=== PATIENT | female | born 1965 | race Caucasian/White ===

== ENCOUNTER 2016-10-24 23:59 | Inpatient (IN) | payer SELFPAY ==
[~2016-10-24] VITALS: Ht 149.9 cm; Wt 74.4 kg
[~2016-10-24 23:59] MED LIST: AMLO5 PO; METO50TA PO
[2016-10-25] VITALS (8 sets, daily range): BP systolic 83–151; BP diastolic 51–91; PULSE 76–103; RESP 16–20; TEMP 96.9–98.8; O2SAT 96–99
[2016-10-25] MEDS: SODIUM CHLOR 0.9% 1000 ML INJ 1,000 ML IV SCH ×2 (02:36→15:25)
[2016-10-25] MEDS ORDERED: BISACODYL 10 MG SUPP RECTAL PRN (02:45)
[2016-10-25] MEDS ORDERED: ACETAMINOPHEN 325 MG TAB PO PRN (02:45)
[2016-10-25] MEDS ORDERED: NALOXONE HCL 0.4 MG/ML AMP IV PRN (02:45)
[2016-10-25] MEDS ORDERED: HYDROmorphone HCL PF 1 MG/ML VIAL IV PUSH PRN (02:45)
[2016-10-25] MEDS ORDERED: SODIUM CHLORIDE 0.9% FLUSH 10 ML FLUSH IV FLUSH PRN (02:45)
[2016-10-25] MEDS ORDERED: MAGNESIUM HYDROXIDE SUSP 30 ML CUP PO PRN (02:45)
--- NOTE | 2016-10-25 03:10 | HHI.HP ---
[facility] Siddhartha Cordova MD Admission Diagnosis Intractable abdominal pain possible acute cholecystitis Diagnoses: Chief Complaint: Abdominal pain Travel History International Travel<30 Days: No Contact w/Intl Traveler <30 Da: No Traveled to Known Affected Are: No History of Present Illness This 51-year-old female patient with past medical history which includes hypertension. Patient reports that she began to have abdominal pain yesterday. Patient reports abdominal pain which started yesterday while at work. Patient reports the pain is is located primarily in the right upper quadrant with radiation to the back. Patient describes the pain as a dull constant aching sensation 8 out of 10 at its worst, now 2/10. Pain has improved after IV Dilaudid. Patient is not sure what exacerbates the pain, does not seem to be related to activity or certain foods. Patient reports she has not had pain like this in the past. Patient does have associated nausea but no vomiting. Patient denies chest pain, shortness of breath, diarrhea, constipation, black tarry stools, bright red blood per rectum, fevers, chills, recent changes in diet or recent travel. Review of Systems Except as stated in HPI: all other systems reviewed are Neg Past Family Social History Past Medical History Hypertension Past Surgical History Hysterectomy Reported Medications Norvasc (Amlodipine Besylate) 5 Mg Tab 5 Mg PO DAILY Metoprolol Tartrate 50 Mg Tab 50 Mg PO DAILY Allergies: Coded Allergies: No Known Allergies (Unverified , 10/24/16) Active Ordered Medications Current Medications Medications (Trade) Dose Ordered Sig/William Route Start Time Stop Time Status Last Admin (NS 1000 ml Inj) 1,000 ml @ 75 mls/hr [id number] IV 10/25/16 02:36 (NS Flush) 2 ml UNSCH PRN IV FLUSH 10/25/16 02:45 (NS Flush) 2 ml BID IV FLUSH 10/25/16 09:00 (Tylenol) 650 mg Q4H PRN PO 10/25/16 02:45 (Zofran Inj) 4 mg Q6H PRN IVP 10/25/16 02:45 (Narcan Inj) 0.4 mg UNSCH PRN IV 10/25/16 02:45 (Marley-Colace) 1 tab BID PO 10/25/16 09:00 (Milk Of Magnesia Liq) 30 ml Q12H PRN PO 10/25/16 02:45 (Dulcolax Supp) 10 mg DAILY PRN RECTAL 10/25/16 02:45 Hydromorphone HCl 0.5 mg 0.5 mg Q4H PRN IV PUSH 10/25/16 02:45 (Zosyn 3.375 Gm Premix) 50 ml @ 100 mls/hr Q6H IV 10/25/16 05:00 UNV (Norvasc) 5 mg DAILY PO 10/25/16 09:00 UNV (Lopressor) 50 mg DAILY PO 10/25/16 09:00 UNV Family History Mother and father both alive in their 70s both have hypertension and diabetes Mother and sister have both had cholecystectomy secondary to acute cholecystitis Social History Patient denies EtOH use tobacco use or illicit drug use Physical Exam Physical Exam GENERAL: This is a well-nourished, well-developed patient, in no apparent distress at this time. SKIN: No rashes, ecchymoses or lesions. Cool and dry. HEAD: Atraumatic. Normocephalic. No temporal or scalp tenderness. EYES: Extraocular motions intact. No scleral icterus. No injection or drainage. CARDIOVASCULAR: Regular rate and rhythm without murmurs, gallops, or rubs. RESPIRATORY: Clear to auscultation. Breath sounds equal bilaterally. No wheezes , rales, or rhonchi. GASTROINTESTINAL: Abdomen soft, tender right upper quadrant, nondistended. MUSCULOSKELETAL: Trace bilateral lower extremity edema No calf tenderness. Negative Homans sign bilaterally. NEUROLOGICAL: Awake and alert. No focal deficits appreciated. Motor and sensory grossly within normal limits. Five out of 5 muscle strength in all muscle groups. Normal speech. Assessment and Plan Problem List: (1) Intractable abdominal pain ICD Code: R10.9 Status: Acute (2) HTN (hypertension) ICD Code: I10 Status: Acute Assessment and Plan This 51-year-old female patient with past medical history which includes hypertension and surgical history includes hysterectomy. Patient reports right- sided abdominal pain which radiates to the back starting yesterday Intractable abdominal pain requiring IV Dilaudid for pain control Possible acute cholecystitis positive Mo sign per ER physician bedside ultrasound Ultrasound gallbladder ordered and pending Patient nothing by mouth at this time Dilaudid IV as needed for pain Zosyn IV Hypertension Control pain Continue home amlodipine and metoprolol Monitor blood pressure trend SCDs for DVT prophylaxis Discussed with nursing patient and Janessa Lee Oct 25, 2016 03:10
[2016-10-25] MEDS: ONDANSETRON HCL 4 MG/2 ML VIAL IVP PRN (03:14)
[2016-10-25] MEDS: PIPERACIL-TAZO 3.375 GM PREMIX 50 ML IV SCH ×4 (04:23→22:02)
[2016-10-25] MEDS: HYDROmorphone HCL PF 1 MG/ML VIAL IV PUSH PRN ×6 (05:30→22:08)
--- NOTE | 2016-10-25 08:36 | RADRPT ---
EXAM DATE/TIME: 10/25/2016 07:56 [facility] COMPARISON: No previous studies available for comparison. INDICATIONS : Right upper quadrant abdominal pain. MEDICAL HISTORY : Right upper quadrant pain. Nausea. SURGICAL HISTORY : None. ENCOUNTER: Initial ACUITY: 1 day PAIN SCORE: 6/10 LOCATION: Right upper quadrant MEASUREMENTS: LIVER: 16.5 cm length COMMON DUCT: 9 mm RIGHT KIDNEY: 10.8 x 4.9 x 4.8 cm FINDINGS: LIVER: There is increased echogenicity throughout the liver parenchyma. No dilated biliary ducts. The portal system is patent. COMMON DUCT: No intraluminal mass or stone visualized. GALLBLADDER: Multiple stones are seen throughout the gallbladder. There is diffuse thickening of the gallbladder w all at 1.1 cm. There is fluid around the gallbladder. Patient has a positive Mo's sign. These fin dings are suspicious for acute cholecystitis. PANCREAS: The visualized portions are within normal limits. RIGHT KIDNEY: No evidence of hydronephrosis, stone, or mass. CONCLUSION: 1. Multiple gallstones in the gallbladder without biliary tract obstruction. 2. There is diffuse thickening of the gallbladder wall with fluid around the gallbladder and a positi ve Mo's sign suspicious for acute cholecystitis. Fabrice Dickerson MD on October 25, 2016 at 8:32 Board Certified Radiologist. This report was verified electronically.
[2016-10-25] MEDS: DOCUSATE SODIUM 50 MG/SENNA 8.6 MG TAB PO SCH ×2 (08:49→22:02)
[2016-10-25] MEDS: amLODIPine BESYLATE 5 MG TAB PO SCH (08:49)
[2016-10-25] MEDS: METOPROLOL TARTRATE 50 MG TAB PO SCH (08:49)
[2016-10-25] MEDS: SODIUM CHLORIDE 0.9% FLUSH 10 ML FLUSH IV FLUSH SCH ×2 (08:50→22:03)
[2016-10-25] MEDS ORDERED: HYDROmorphone HCL PF 1 MG/ML VIAL IV PUSH ONE (09:00)
--- NOTE | 2016-10-25 09:26 | HHI.PR ---
Subjective Remarks Follow up for acute cholecystitis. The patient reports continued pain located at the RUQ/epigastric area with radiation to the right flank, described as constant 8/10 pains. She reports intermittent nausea but no vomiting. Denies fevers/chills. She believes she's been having these pains for over a month now. She wants to proceed with cholecystectomy noe. She has no other medical complaints at this time. Objective Vitals Vital Signs Date Time Temp Pulse Resp B/P Pulse Ox O2 Delivery O2 Flow Rate FiO2 10/25/16 08:41 97.8 100 18 151/91 96 10/25/16 06:12 97 10/25/16 06:00 18 10/25/16 03:43 18 10/25/16 03:18 98.8 99 18 133/74 96 I/O 10/24/16 10/24/16 10/24/16 10/25/16 10/25/16 10/25/16 07:00 15:00 23:00 07:00 15:00 23:00 Intake Total 163 ml Balance 163 ml Intake IV Total 163 ml Imaging Last Impressions Gall Bladder Ultrasound 10/25/16 0710 Signed Impressions: Service Date/Time: Tuesday, October 25, 2016 07:56 - CONCLUSION: 1. Multiple gallstones in the gallbladder without biliary tract obstruction. 2. There is diffuse thickening of the gallbladder wall with fluid around the gallbladder and a positive Mo's sign suspicious for acute cholecystitis. Fabrice Dickerson MD Objective Remarks GENERAL: Well-nourished, well-developed pleasant middle aged female patient in [facility]. SKIN: Warm and dry. No rash. HEENT: Normocephalic. Atraumatic.Pupils equal and round. Mucous membranes pink and moist. NECK: Supple. Trachea midline. CARDIOVASCULAR: Regular rate and rhythm. S1, S2 noted. No murmur appreciated. RESPIRATORY: No accessory muscle use. Clear to auscultation. Breath sounds equal bilaterally. GASTROINTESTINAL: Abdomen soft, nondistended, tenderness to light and deep palpation at epigastric and RUQ, with +Mo's sign. Normoactive bowel sounds x4. MUSCULOSKELETAL: No obvious deformities. Extremities without clubbing, cyanosis , or edema. NEUROLOGICAL: Awake and alert. No obvious cranial nerve deficits. Motor grossly within normal limits. Normal speech. PSYCHIATRIC: Appropriate mood and affect; insight and judgment normal. Medications and IVs Current Medications Medications (Trade) Dose Ordered Sig/William Route Start Time Stop Time Status Last Admin (NS 1000 ml Inj) 1,000 ml @ 75 mls/hr [id number] IV 10/25/16 02:36 10/25/16 02:36 (NS Flush) 2 ml UNSCH PRN IV FLUSH 10/25/16 02:45 (NS Flush) 2 ml BID IV FLUSH 10/25/16 09:00 10/25/16 08:50 (Tylenol) 650 mg Q4H PRN PO 10/25/16 02:45 (Zofran Inj) 4 mg Q6H PRN IVP 10/25/16 02:45 10/25/16 03:14 (Narcan Inj) 0.4 mg UNSCH PRN IV 10/25/16 02:45 (Marley-Colace) 1 tab BID PO 10/25/16 09:00 10/25/16 08:49 (Milk Of Magnesia Liq) 30 ml Q12H PRN PO 10/25/16 02:45 Bisacodyl 10 mg 10 mg DAILY PRN RECTAL 10/25/16 02:45 (Zosyn 3.375 Gm Premix) 50 ml @ 100 mls/hr Q6H IV 10/25/16 05:00 10/25/16 04:23 (Norvasc) 5 mg DAILY PO 10/25/16 09:00 10/25/16 08:49 (Lopressor) 50 mg DAILY PO 10/25/16 09:00 10/25/16 08:49 (Dilaudid Pf Inj) 0.5 mg Q3HR PRN IV PUSH 10/25/16 05:32 10/25/16 08:47 (Pneumovax-23 Inj) 25 mcg ONCE ONCE IM 10/26/16 09:00 10/26/16 09:01 A/P Problem List: (1) Intractable abdominal pain ICD Code: R10.9 Status: Acute (2) HTN (hypertension) ICD Code: I10 Status: Acute Assessment and Plan 51-year-old female patient with past medical history which includes hypertension and surgical history includes hysterectomy. Patient reports RUQ abdominal pain which radiates to the back starting yesterday Acute Cholecystitis: with Intractable Abdominal Pain. Positive Mo sign on exam. Gallbladder U/S showed multiple gallstones in the GB without biliary tract obstruction; with diffuse thickening of GB wall with fluid around the GB and +Mo's sign suspicious for acute cholecystitis. Keep NPO. Continue on IV Zosyn. Pain control with IV Dilaudid. Antiemetics prn. IVF. Consult general surgery. Patient wishes to proceed with cholecystectomy. Check screening EKG preoperatively. Hypertension: chronic. Control pain. Continue patient's amlodipine and metoprolol. Monitor blood pressure trend and adjust antihypertensives as needed. SCDs for DVT prophylaxis. Avoid chemical prophylaxis with possible upcoming procedure. Chloé Leigh PA-C Oct 25, 2016 9:26 am
[2016-10-25] MEDS ORDERED: ACETAMIN 325 MG/BUTALBITAL 50 MG/CAFFEINE 40 MG TAB PO ONE (12:00)
--- NOTE | 2016-10-25 13:35 | PD.CAR.PN ---
CVT Progress Note Subjective/Hospital Course: 51-year-old female admitted through emergency room with right upper quadrant pain and nausea and vomiting Patient is worked up and ultrasound reveals acute calculus cholecystitis with pericholecystic fluid consistent with the above Physical exam Abdomen soft active bowel sounds very tender in right upper quadrant and gallbladder is palpable by dome Will allow gallbladder to cool down a bit for next 24 hours and then take patient to the operating room Patient is currently on IV fluids and antibiotics and all things equal patient will be scheduled Thursday for laparoscopic cholecystectomy Thanks J Objective: Vital Signs Date Time Temp Pulse Resp B/P Pulse Ox O2 Delivery O2 Flow Rate FiO2 10/25/16 12:23 98.2 103 18 133/80 96 10/25/16 08:41 97.8 100 18 151/91 96 10/25/16 06:12 97 10/25/16 06:00 18 10/25/16 03:43 18 10/25/16 03:18 98.8 99 18 133/74 96 Grover Batista MD Oct 25, 2016 13:35
[2016-10-25] MEDS: ACETAMIN 325 MG/BUTALBITAL 50 MG/CAFFEINE 40 MG TAB PO PRN (18:43)
[2016-10-26] VITALS (8 sets, daily range): BP systolic 95–177; BP diastolic 52–100; PULSE 79–99; RESP 16–20; TEMP 96.8–99.7; O2SAT 93–98
[2016-10-26] MEDS: ACETAMIN 325 MG/BUTALBITAL 50 MG/CAFFEINE 40 MG TAB PO PRN ×3 (01:33→17:37)
[2016-10-26] MEDS: HYDROmorphone HCL PF 1 MG/ML VIAL IV PUSH PRN ×7 (01:33→21:13)
--- NOTE | 2016-10-26 05:11 | PD.CAR.PN ---
CVT Progress Note Subjective/Hospital Course: 51-year-old female admitted through emergency room with right upper quadrant pain and nausea and vomiting Patient is worked up and ultrasound reveals acute calculus cholecystitis with pericholecystic fluid consistent with the above Physical exam Abdomen soft active bowel sounds very tender in right upper quadrant and gallbladder is palpable by dome Will allow gallbladder to cool down a bit for next 24 hours and then take patient to the operating room Patient is currently on IV fluids and antibiotics and all things equal patient will be scheduled Thursday morning for laparoscopic cholecystectomy Thanks Jey 10/26/16 Abdomen soft mill tender second operator in the right upper quadrant Resolving acute cholecystitis with cholelithiasis For surgery tomorrow Objective: Vital Signs Date Time Temp Pulse Resp B/P Pulse Ox O2 Delivery O2 Flow Rate FiO2 10/26/16 04:00 97.2 85 18 106/55 95 10/26/16 03:31 16 10/26/16 03:31 16 10/26/16 00:00 97.3 79 16 121/59 96 10/25/16 20:43 98 21 10/25/16 20:00 96.9 76 16 83/51 99 10/25/16 16:56 97.7 87 20 111/69 97 10/25/16 14:28 96.9 88 20 116/80 96 10/25/16 12:23 98.2 103 18 133/80 96 10/25/16 08:41 97.8 100 18 151/91 96 10/25/16 06:12 97 10/25/16 06:00 18 Grover Batista MD Oct 26, 2016 05:11
[2016-10-26] MEDS: SODIUM CHLOR 0.9% 1000 ML INJ 1,000 ML IV SCH ×2 (05:16→16:08)
[2016-10-26] MEDS: PIPERACIL-TAZO 3.375 GM PREMIX 50 ML IV SCH ×4 (05:34→21:12)
[2016-10-26 06:40] LABS: AUTOMATED NEUTROPHIL # 7.9 TH/MM3 (1.8-7.7); BASOPHIL # 0.1 TH/MM3 (0-0.2); BASOPHIL % 0.5 % (0.0-2.0); EOSINOPHIL # 0.1 TH/MM3 (0-0.4); EOSINOPHIL % 1.2 % (0.0-4.0); HEMATOCRIT 39.9 % (35.0-46.0); HEMO FLAGS DIFF FINAL; LYMPH % 17.4 % (9.0-44.0); MEAN CELL VOLUME 89.4 FL (80.0-100.0); MEAN CORPUSCULAR HEMOGLOBIN 29.6 PG (27.0-34.0); MEAN CORPUSCULAR HGB CONC 33.1 % (32.0-36.0); MONO % 10.8 % (0.0-8.0); NEUT % 70.1 % (16.0-70.0); PLATELET COUNT 256 TH/MM3 (150-450); RED BLOOD COUNT 4.47 MIL/MM3 (4.00-5.30); RED CELL DISTRIBUTION WIDTH 13.8 % (11.6-17.2); WHITE BLOOD COUNT 11.3 TH/MM3 (4.0-11.0)
[2016-10-26 06:59] LABS: ALT (GPT) 43 U/L (10-53); ANION GAP 7 MEQ/L (5-15); AST (GOT) 25 U/L (15-37); BICARBONATE 26.8 MEQ/L (21.0-32.0); BLOOD UREA NITROGEN 9 MG/DL (7-18); CHLORIDE 105 MEQ/L (98-107); GLOMERULAR FILTRATION RATE 83 ML/MIN (>89); POTASSIUM 3.9 MEQ/L (3.5-5.1); SODIUM (NA) 139 MEQ/L (136-145)
[2016-10-26 07:01] LABS: ALKALINE PHOSPHATASE 114 U/L (45-117); TOTAL BILIRUBIN ADULT 0.9 MG/DL (0.2-1.0)
[2016-10-26] MEDS: METOPROLOL TARTRATE 50 MG TAB PO SCH (08:21)
[2016-10-26] MEDS: amLODIPine BESYLATE 5 MG TAB PO SCH (08:21)
[2016-10-26] MEDS: SODIUM CHLORIDE 0.9% FLUSH 10 ML FLUSH IV FLUSH SCH ×2 (09:00→21:12)
[2016-10-26] MEDS ORDERED: PNEUMOCOCCAL POLYVALENT INJ 25 MCG/0.5 ML SYR IM ONE (09:00)
[2016-10-26] MEDS: DOCUSATE SODIUM 50 MG/SENNA 8.6 MG TAB PO SCH ×2 (09:00→21:12)
--- NOTE | 2016-10-26 13:55 | HHI.PR ---
Subjective Remarks The patient was resting comfortably in bed. She said the level of Dilaudid was not high enough. She said she did not want to try any pills because she gets very bad headaches with those. She otherwise is tolerating a clear liquid diet and is requesting something more filling. Discussed with nursing. Objective Vitals Vital Signs Date Time Temp Pulse Resp B/P Pulse Ox O2 Delivery O2 Flow Rate FiO2 10/26/16 12:08 97.7 87 20 121/52 98 10/26/16 09:30 98 21 10/26/16 08:59 97.6 81 20 95/54 94 10/26/16 06:42 16 10/26/16 04:00 97.2 85 18 106/55 95 10/26/16 03:31 16 10/26/16 00:00 97.3 79 16 121/59 96 10/25/16 20:43 98 21 10/25/16 20:00 96.9 76 16 83/51 99 10/25/16 16:56 97.7 87 20 111/69 97 10/25/16 14:28 96.9 88 20 116/80 96 I/O 10/25/16 10/25/16 10/25/16 10/26/16 10/26/16 10/26/16 07:00 15:00 23:00 07:00 15:00 23:00 Intake Total 163 ml 300 ml Balance 163 ml 300 ml Intake IV Total 163 ml 300 ml # Voids 1 2 Result Diagram: 10/26/16 0615 10/26/16 0610 Imaging Last Impressions Gall Bladder Ultrasound 10/25/16 0710 Signed Impressions: Service Date/Time: Tuesday, October 25, 2016 07:56 - CONCLUSION: 1. Multiple gallstones in the gallbladder without biliary tract obstruction. 2. There is diffuse thickening of the gallbladder wall with fluid around the gallbladder and a positive Mo's sign suspicious for acute cholecystitis. Fabrice Dickerson MD Objective Remarks GENERAL: Well-nourished, well-developed patient in [place]. SKIN: Warm and dry. No rash. HEENT: Normocephalic. Atraumatic.Pupils equal and round. Mucous membranes pink and moist. NECK: Supple. Trachea midline. CARDIOVASCULAR: Regular rate and rhythm. S1, S2 noted. No murmur appreciated. RESPIRATORY: No accessory muscle use. Clear to auscultation. Breath sounds equal bilaterally. GASTROINTESTINAL: Abdomen soft, nondistended, tenderness to light and deep palpation at epigastric and RUQ, with +Mo's sign. Normoactive bowel sounds x4. MUSCULOSKELETAL: No obvious deformities. Extremities without clubbing, cyanosis , or edema. NEUROLOGICAL: Awake and alert. No obvious cranial nerve deficits. Motor grossly within normal limits. Normal speech. PSYCHIATRIC: Appropriate mood and affect; insight and judgment normal. Medications and IVs Current Medications Medications (Trade) Dose Ordered Sig/William Route Start Time Stop Time Status Last Admin (NS 1000 ml Inj) 1,000 ml @ 75 mls/hr [id number] IV 10/25/16 02:36 10/25/16 02:36 (NS Flush) 2 ml UNSCH PRN IV FLUSH 10/25/16 02:45 (NS Flush) 2 ml BID IV FLUSH 10/25/16 09:00 10/25/16 22:03 (Tylenol) 650 mg Q4H PRN PO 10/25/16 02:45 (Zofran Inj) 4 mg Q6H PRN IVP 10/25/16 02:45 10/25/16 03:14 (Narcan Inj) 0.4 mg UNSCH PRN IV 10/25/16 02:45 (Marley-Colace) 1 tab BID PO 10/25/16 09:00 10/25/16 22:02 (Milk Of Magnesia Liq) 30 ml Q12H PRN PO 10/25/16 02:45 Bisacodyl 10 mg 10 mg DAILY PRN RECTAL 10/25/16 02:45 (Zosyn 3.375 Gm Premix) 50 ml @ 100 mls/hr Q6H IV 10/25/16 05:00 10/26/16 11:37 (Norvasc) 5 mg DAILY PO 10/25/16 09:00 10/25/16 08:49 (Lopressor) 50 mg DAILY PO 10/25/16 09:00 10/25/16 08:49 (Dilaudid Pf Inj) 1 mg Q3HR PRN IV PUSH 10/25/16 09:30 10/26/16 11:37 (Fioricet 325-50-40) 1 tab Q6H PRN PO 10/25/16 15:45 10/26/16 11:55 A/P Problem List: (1) Intractable abdominal pain ICD Code: R10.9 Status: Acute (2) HTN (hypertension) ICD Code: I10 Status: Acute Assessment and Plan 51-year-old female patient with a past medical history which includes hypertension and surgical history which includes hysterectomy. Patient reports RUQ abdominal pain which radiates to the back starting yesterday Acute Cholecystitis With intractable abdominal pain. Positive Mo sign on exam. Gallbladder U/S showed multiple gallstones in the GB without biliary tract obstruction; with diffuse thickening of GB wall with fluid around the GB and +Mo's sign suspicious for acute cholecystitis. Surgical consult appreciated. - clear liquids for now. - NPO at [place] for cholecystectomy by surgery. - Continue on IV Zosyn. - Pain control with IV Dilaudid. Antiemetics prn. IVF. Hypertension Chronic. Well controlled. - Control pain. - Continue patient's amlodipine and metoprolol as tolerated. SCDs for DVT prophylaxis. Avoid chemical prophylaxis with possible upcoming procedure Discharge Planning Awaiting clinical improvement Ron Bobby DO Oct 26, 2016 13:55
[2016-10-26] MEDS: ONDANSETRON HCL 4 MG/2 ML VIAL IVP PRN (21:11)
[2016-10-27] VITALS: BP 97/62; PULSE 106; RESP 16; TEMP 99.5; O2SAT 96
[2016-10-27] MEDS: HYDROmorphone HCL PF 1 MG/ML VIAL IV PUSH PRN ×6 (00:55→23:01)
[2016-10-27 04:00] VITALS: BP 91/59; PULSE 93; RESP 16; TEMP 97.6; O2SAT 98
[2016-10-27] MEDS: PIPERACIL-TAZO 3.375 GM PREMIX 50 ML IV SCH ×5 (04:27→23:00)
[2016-10-27] MEDS: SODIUM CHLOR 0.9% 1000 ML INJ 1,000 ML IV SCH ×2 (05:15→19:59)
[2016-10-27 08:00] VITALS: BP 92/58; PULSE 93; RESP 18; TEMP 98.3; O2SAT 99
[2016-10-27] MEDS: DOCUSATE SODIUM 50 MG/SENNA 8.6 MG TAB PO SCH ×2 (08:33→19:58)
[2016-10-27] MEDS: amLODIPine BESYLATE 5 MG TAB PO SCH (09:00)
[2016-10-27] MEDS: METOPROLOL TARTRATE 50 MG TAB PO SCH (09:00)
[2016-10-27] MEDS ORDERED: FAMOTIDINE 20 MG/2 ML VIAL ONE (09:26)
[2016-10-27] MEDS ORDERED: MIDAZOLAM HCL 2 MG/2 ML VIAL ONE (09:26)
[2016-10-27] MEDS ORDERED: DEXAMETHASONE SOD PHOS 4 MG/ML VIAL ONE (09:26)
[2016-10-27] MEDS ORDERED: HYDROmorphone HCL PF 2 MG/ML VIAL ONE (09:57)
[2016-10-27] MEDS ORDERED: fentaNYL CITRATE 250 MCG/5 ML AMP ONE (10:12)
[2016-10-27] MEDS ORDERED: PROPOFOL 200 MG/20 ML AMP IV ONE (12:00)
[2016-10-27] MEDS ORDERED: ONDANSETRON HCL 4 MG/2 ML VIAL IV PUSH ONE (12:00)
[2016-10-27] MEDS ORDERED: LACTATED RINGER'S 1000 ML INJ 1,000 ML IV ONE (12:00)
[2016-10-27] MEDS ORDERED: NEOSTIGMINE 3 MG/3 ML SYR IV ONE (12:00)
[2016-10-27] MEDS ORDERED: DO NOT ADM ANY ANTICOAGULANT DRUGS PRN (12:30)
[2016-10-27] MEDS ORDERED: *ONDANSETRON 4 MG VIAL PERIprocedural Use ONLY ONE (12:43)
[2016-10-27] MEDS ORDERED: *morphine SULFATE 8 MG/ML PERIprocedure ONLY ONE ×2 (12:52→13:09)
[2016-10-27] MEDS ORDERED: MAGNESIUM SULFATE 2 GM/NS 100 ML IV ONE ×2 (13:00)
[2016-10-27] MEDS: ONDANSETRON HCL 4 MG/2 ML VIAL IVP PRN ×2 (14:42→23:07)
[2016-10-27 16:00] VITALS: BP 107/67; PULSE 120; RESP 16; TEMP 97.4; O2SAT 96
[2016-10-27] MEDS ORDERED: MORPHINE SULFATE 4 MG/ML INJ IV PUSH PRN (17:45)
--- NOTE | 2016-10-27 17:55 | HHI.PR ---
Subjective Remarks The patient complained of significant pain following surgery. She says certain movements will make the pain worse or better. Family was at the bedside. The patient wanted to go home tomorrow. Discussed with nursing and surgery. Objective Vitals Vital Signs Date Time Temp Pulse Resp B/P Pulse Ox O2 Delivery O2 Flow Rate FiO2 10/27/16 16:00 97.4 120 16 107/67 96 10/27/16 13:25 98.0 103 20 123/73 95 Nasal Cannula 2 10/27/16 13:15 103 20 123/73 95 Nasal Cannula 2 10/27/16 13:00 97 20 122/67 92 Nasal Cannula 2 10/27/16 12:45 110 20 126/69 97 Nasal Cannula 2 10/27/16 12:30 98.0 108 20 109/62 93 Nasal Cannula 2 10/27/16 08:00 98.3 93 18 92/58 99 10/27/16 05:03 16 10/27/16 04:00 97.6 93 16 91/59 98 10/27/16 01:50 16 10/27/16 00:00 99.5 106 16 97/62 96 10/26/16 20:00 99.6 99 17 97/59 97 I/O 10/26/16 10/26/16 10/26/16 10/27/16 10/27/16 10/27/16 07:00 15:00 23:00 07:00 15:00 23:00 Intake Total 960 ml 720 ml 1045 ml Output Total 65 ml Balance 960 ml 720 ml 980 ml Intake Oral 960 ml 720 ml IV Total 45 ml Other 1000 ml Output Drainage Total 40 ml Estimated Blood Loss 25 ml # Voids 2 1 2 Result Diagram: 10/26/16 0615 10/26/16 0610 Imaging Last Impressions Gall Bladder Ultrasound 10/25/16 0710 Signed Impressions: Service Date/Time: Tuesday, October 25, 2016 07:56 - CONCLUSION: 1. Multiple gallstones in the gallbladder without biliary tract obstruction. 2. There is diffuse thickening of the gallbladder wall with fluid around the gallbladder and a positive Mo's sign suspicious for acute cholecystitis. Fabrice Dickerson MD Objective Remarks GENERAL: Well-nourished, well-developed patient in [place]. SKIN: Warm and dry. No rash. HEENT: Normocephalic. Atraumatic.Pupils equal and round. Mucous membranes pink and moist. NECK: Supple. Trachea midline. CARDIOVASCULAR: Regular rate and rhythm. S1, S2 noted. No murmur appreciated. RESPIRATORY: No accessory muscle use. Clear to auscultation. Breath sounds equal bilaterally. GASTROINTESTINAL: Abdomen soft, nondistended, tenderness to light and deep palpation at epigastric and RUQ. GENIE drain in place. Normoactive bowel sounds x4. MUSCULOSKELETAL: No obvious deformities. Extremities without clubbing, cyanosis , or edema. NEUROLOGICAL: Awake and alert. No obvious cranial nerve deficits. Motor grossly within normal limits. Normal speech. PSYCHIATRIC: Appropriate mood and affect; insight and judgment normal. Procedures Cholecystectomy 10/27/16 Medications and IVs Current Medications Medications (Trade) Dose Ordered Sig/William Route Start Time Stop Time Status Last Admin (NS 1000 ml Inj) 1,000 ml @ 75 mls/hr [id number] IV 10/25/16 02:36 10/25/16 02:36 (NS Flush) 2 ml UNSCH PRN IV FLUSH 10/25/16 02:45 (NS Flush) 2 ml BID IV FLUSH 10/25/16 09:00 10/26/16 21:12 (Tylenol) 650 mg Q4H PRN PO 10/25/16 02:45 (Zofran Inj) 4 mg Q6H PRN IVP 10/25/16 02:45 10/27/16 14:42 (Narcan Inj) 0.4 mg UNSCH PRN IV 10/25/16 02:45 (Marley-Colace) 1 tab BID PO 10/25/16 09:00 10/27/16 08:33 (Milk Of Magnesia Liq) 30 ml Q12H PRN PO 10/25/16 02:45 Bisacodyl 10 mg 10 mg DAILY PRN RECTAL 10/25/16 02:45 (Zosyn 3.375 Gm Premix) 50 ml @ 100 mls/hr Q6H IV 10/25/16 05:00 10/27/16 10:45 (Norvasc) 5 mg DAILY PO 10/25/16 09:00 10/25/16 08:49 (Lopressor) 50 mg DAILY PO 10/25/16 09:00 10/25/16 08:49 (Fioricet 325-50-40) 1 tab Q6H PRN PO 10/25/16 15:45 10/26/16 17:37 Miscellaneous Information ALL NURSING DEPARTME... UNSCH PRN .XX 10/27/16 12:30 10/28/16 12:29 (Morphine Inj) 4 mg Q2H PRN IV PUSH 10/27/16 17:45 UNV (Percocet 5-325 Mg) 1 tab Q4H PRN PO 10/27/16 17:45 UNV A/P Problem List: (1) Intractable abdominal pain ICD Code: R10.9 Status: Acute (2) HTN (hypertension) ICD Code: I10 Status: Acute Assessment and Plan 51-year-old female patient with a past medical history which includes hypertension and surgical history which includes hysterectomy. Patient reports RUQ abdominal pain which radiates to the back starting yesterday Acute Cholecystitis With intractable abdominal pain. Positive Mo sign on exam. Gallbladder U/S showed multiple gallstones in the GB without biliary tract obstruction; with diffuse thickening of GB wall with fluid around the GB and +Mo's sign suspicious for acute cholecystitis. Surgical consult appreciated. Status post close cystectomy 10/27/16. - Advance diet as tolerated. - DC antibiotics. - Pain control with IV morphine and Percocet. Antiemetics prn. IVF. - Follow up with general surgery. - Follow cultures. Hypertension Chronic. Exacerbated by pain. - Control pain. - Continue patient's amlodipine and metoprolol as tolerated. SCDs for DVT prophylaxis. Avoid chemical prophylaxis with possible upcoming procedure Discharge Planning Anticipate discharge home in the morning Ron Bobby DO Oct 27, 2016 17:55
[2016-10-27] MEDS: oxyCODONE/ACETAMINOPHEN 5 MG/325 MG TAB PO PRN (19:59)
[2016-10-27] MEDS: SODIUM CHLORIDE 0.9% FLUSH 10 ML FLUSH IV FLUSH SCH (19:59)
[2016-10-27 20:00] VITALS: BP 143/89; PULSE 119; RESP 18; TEMP 99.5; O2SAT 95
[2016-10-28] VITALS: BP 109/60; PULSE 114; RESP 16; TEMP 98.7; O2SAT 99
[2016-10-28] MEDS: oxyCODONE/ACETAMINOPHEN 5 MG/325 MG TAB PO PRN ×3 (00:07→08:35)
[2016-10-28] MEDS: HYDROmorphone HCL PF 1 MG/ML VIAL IV PUSH PRN ×3 (02:59→10:54)
[2016-10-28] MEDS: PIPERACIL-TAZO 3.375 GM PREMIX 50 ML IV SCH (04:07)
[2016-10-28 07:20] LABS: AUTOMATED NEUTROPHIL # 6.5 TH/MM3 (1.8-7.7); BASOPHIL % 0.1 % (0.0-2.0); EOSINOPHIL # 0.1 TH/MM3 (0-0.4); EOSINOPHIL % 0.7 % (0.0-4.0); HEMATOCRIT 35.5 % (35.0-46.0); HEMO FLAGS DIFF FINAL; LYMPH % 17.9 % (9.0-44.0); LYMPHOCYTE # 1.6 TH/MM3 (1.0-4.8); MEAN CORPUSCULAR HEMOGLOBIN 30.4 PG (27.0-34.0); MEAN CORPUSCULAR HGB CONC 34.2 % (32.0-36.0); MONO % 10.2 % (0.0-8.0); NEUT % 71.1 % (16.0-70.0); PLATELET COUNT 267 TH/MM3 (150-450); RED BLOOD COUNT 3.98 MIL/MM3 (4.00-5.30); RED CELL DISTRIBUTION WIDTH 13.8 % (11.6-17.2); WHITE BLOOD COUNT 9.2 TH/MM3 (4.0-11.0)
--- NOTE | 2016-10-28 07:37 | EKG ---
Date Performed: 10/27/2016 Time Performed: 09:48:34 PTAGE: 51 years EKG: SINUS TACHYCARDIA ABNORMAL RHYTHM ECG NO PREVIOUS TRACING DOCTOR: Rolanod Segura Interpretating Date/Time 10/28/2016 07:36:53
[2016-10-28 07:41] LABS: ANION GAP 7 MEQ/L (5-15); AST (GOT) 35 U/L (15-37); BICARBONATE 27.9 MEQ/L (21.0-32.0); BLOOD UREA NITROGEN 5 MG/DL (7-18); CHLORIDE 105 MEQ/L (98-107); GLOMERULAR FILTRATION RATE 97 ML/MIN (>89); POTASSIUM 3.5 MEQ/L (3.5-5.1); SODIUM (NA) 140 MEQ/L (136-145)
[2016-10-28 07:45] LABS: ALKALINE PHOSPHATASE 116 U/L (45-117); ALT (GPT) 55 U/L (10-53); TOTAL BILIRUBIN ADULT 0.7 MG/DL (0.2-1.0)
[2016-10-28 08:00] VITALS: BP 108/56; PULSE 102; RESP 16; TEMP 97.1; O2SAT 92
[2016-10-28] MEDS: METOPROLOL TARTRATE 50 MG TAB PO SCH ×2 (09:00→10:54)
[2016-10-28] MEDS: amLODIPine BESYLATE 5 MG TAB PO SCH (09:00)
--- NOTE | 2016-10-28 09:38 | HHI.PR ---
Subjective Remarks The patient was still having significant abdominal pain. She wanted increased pain medication. She has not been passing gas. She has not had a bowel movement since she has been here. She was eating breakfast. She wants to go home soon. Discussed with nursing. Objective Vitals Vital Signs Date Time Temp Pulse Resp B/P Pulse Ox O2 Delivery O2 Flow Rate FiO2 10/28/16 08:00 97.1 102 16 108/56 92 10/28/16 00:00 98.7 114 16 109/60 99 10/27/16 20:00 99.5 119 18 143/89 95 10/27/16 16:00 97.4 120 16 107/67 96 10/27/16 13:25 98.0 103 20 123/73 95 Nasal Cannula 2 10/27/16 13:15 103 20 123/73 95 Nasal Cannula 2 10/27/16 13:00 97 20 122/67 92 Nasal Cannula 2 10/27/16 12:45 110 20 126/69 97 Nasal Cannula 2 10/27/16 12:30 98.0 108 20 109/62 93 Nasal Cannula 2 I/O 10/27/16 10/27/16 10/27/16 10/28/16 10/28/16 10/28/16 07:00 15:00 23:00 07:00 15:00 23:00 Intake Total 1045 ml 360 ml 240 ml Output Total 65 ml 40 ml 25 ml Balance 980 ml 320 ml 215 ml Intake Oral 360 ml 240 ml IV Total 45 ml Other 1000 ml Output Drainage Total 40 ml 40 ml 25 ml Estimated Blood Loss 25 ml # Voids 2 3 # Bowel Movements 0 0 Result Diagram: 10/28/16 0536 10/28/16 0536 Imaging Last Impressions Gall Bladder Ultrasound 10/25/16 0710 Signed Impressions: Service Date/Time: Tuesday, October 25, 2016 07:56 - CONCLUSION: 1. Multiple gallstones in the gallbladder without biliary tract obstruction. 2. There is diffuse thickening of the gallbladder wall with fluid around the gallbladder and a positive Mo's sign suspicious for acute cholecystitis. Fabrice Dickerson MD Objective Remarks GENERAL: Well-nourished, well-developed patient in NAD. SKIN: Warm and dry. No rash. HEENT: Normocephalic. Atraumatic.Pupils equal and round. Mucous membranes pink and moist. NECK: Supple. Trachea midline. CARDIOVASCULAR: Regular rate and rhythm. S1, S2 noted. No murmur appreciated. RESPIRATORY: No accessory muscle use. Clear to auscultation. Breath sounds equal bilaterally. GASTROINTESTINAL: Abdomen soft, nondistended, tenderness to light and deep palpation at epigastric and RUQ. GENIE drain in place. Decreased bowel sounds. MUSCULOSKELETAL: No obvious deformities. Extremities without clubbing, cyanosis , or edema. NEUROLOGICAL: Awake and alert. No obvious cranial nerve deficits. Motor grossly within normal limits. Normal speech. PSYCHIATRIC: Slightly flattened affect. Procedures Cholecystectomy 10/27/16 Medications and IVs Current Medications Medications (Trade) Dose Ordered Sig/William Route Start Time Stop Time Status Last Admin (NS 1000 ml Inj) 1,000 ml @ 75 mls/hr [id number] IV 10/25/16 02:36 10/27/16 19:59 (NS Flush) 2 ml UNSCH PRN IV FLUSH 10/25/16 02:45 (NS Flush) 2 ml BID IV FLUSH 10/25/16 09:00 10/26/16 21:12 (Tylenol) 650 mg Q4H PRN PO 10/25/16 02:45 (Zofran Inj) 4 mg Q6H PRN IVP 10/25/16 02:45 10/27/16 23:07 (Narcan Inj) 0.4 mg UNSCH PRN IV 10/25/16 02:45 (Marley-Colace) 1 tab BID PO 10/25/16 09:00 10/27/16 19:58 (Milk Of Magnesia Liq) 30 ml Q12H PRN PO 10/25/16 02:45 Bisacodyl 10 mg 10 mg DAILY PRN RECTAL 10/25/16 02:45 (Zosyn 3.375 Gm Premix) 50 ml @ 100 mls/hr Q6H IV 10/25/16 05:00 10/28/16 04:07 (Norvasc) 5 mg DAILY PO 10/25/16 09:00 10/25/16 08:49 (Lopressor) 50 mg DAILY PO 10/25/16 09:00 10/25/16 08:49 (Fioricet 325-50-40) 1 tab Q6H PRN PO 10/25/16 15:45 10/26/16 17:37 Miscellaneous Information ALL NURSING DEPARTME... UNSCH PRN .XX 10/27/16 12:30 10/28/16 12:29 (Percocet 5-325 Mg) 1 tab Q4H PRN PO 10/27/16 17:45 10/28/16 08:35 (Dilaudid Pf Inj) 1 mg Q4H PRN IV PUSH 10/27/16 18:45 10/28/16 06:36 A/P Problem List: (1) Intractable abdominal pain ICD Code: R10.9 Status: Acute (2) HTN (hypertension) ICD Code: I10 Status: Acute Assessment and Plan 51-year-old female patient with a past medical history which includes hypertension and surgical history which includes hysterectomy. Patient reports RUQ abdominal pain which radiates to the back starting yesterday Acute Cholecystitis With intractable abdominal pain. Positive Mo sign on exam. Gallbladder U/S showed multiple gallstones in the GB without biliary tract obstruction; with diffuse thickening of GB wall with fluid around the GB and +Mo's sign suspicious for acute cholecystitis. Surgical consult appreciated. Status post close cystectomy 10/27/16. - Advance diet as tolerated. - DC antibiotics. - Pain control with IV morphine and oxycodone. Antiemetics prn. IVF. - Follow up with general surgery. Drain still in place. - Follow cultures. Question of ileus The pt has not been passing gas and does not have bowel sounds. - KUB pending. - make pt NPO with supportive care if ileus is suggested. Hypertension Chronic. Exacerbated by pain. Well controlled at this time. - Control pain. - Continue patient's amlodipine and metoprolol as tolerated. SCDs for DVT prophylaxis Discharge Planning Possible d/c later today or tomorrow if feeling better and KUB normal Ron Bobby DO Oct 28, 2016 09:38
[2016-10-28] MEDS ORDERED: OXYC1CAP PO (09:39)
--- NOTE | 2016-10-28 10:25 | RADRPT ---
EXAM DATE/TIME: 10/28/2016 10:03 [facility] COMPARISON: US ABDOMEN - GALLBLADDER, October 25, 2016, 7:56. INDICATIONS : Rule out ileus. MEDICAL HISTORY : None. SURGICAL HISTORY : Cholecystectomy. ENCOUNTER: Subsequent ACUITY: 3 days PAIN SCORE: 10/10 LOCATION: Bilateral Abdomen. FINDINGS: There is a nonobstructive bowel gas pattern identified. Air is seen within transverse colon and, perh aps minimally distended. No dilated loops of small bowel are seen. Surgical clips are noted in the ri ght upper quadrant as well as a surgical drain. There are clips within the pelvis. CONCLUSION: Minimally distended transverse colon without definite evidence for obstruction. A mild ileus can have this appearance. Florencio Gonzalez MD on October 28, 2016 at 10:12 Board Certified Radiologist. This report was verified electronically.
--- NOTE | 2016-10-28 10:30 | PD.CAR.PN ---
CVT Progress Note Subjective/Hospital Course: 51-year-old female admitted through emergency room with right upper quadrant pain and nausea and vomiting Patient is worked up and ultrasound reveals acute calculus cholecystitis with pericholecystic fluid consistent with the above Physical exam Abdomen soft active bowel sounds very tender in right upper quadrant and gallbladder is palpable by dome Will allow gallbladder to cool down a bit for next 24 hours and then take patient to the operating room Patient is currently on IV fluids and antibiotics and all things equal patient will be scheduled Thursday morning for laparoscopic cholecystectomy Thanks Jey 10/26/16 Abdomen soft oil process stillman in the right upper quadrant Resolving acute cholecystitis with cholelithiasis For surgery tomorrow 10/28/16 Status post laparoscopic cholecystectomy Incisions clean and dry Abdomen soft active bowel sounds GI function normal DC patient today Follow-up with me 2 weeks DC GENIE Objective: Vital Signs Date Time Temp Pulse Resp B/P Pulse Ox O2 Delivery O2 Flow Rate FiO2 10/28/16 08:00 97.1 102 16 108/56 92 10/28/16 00:00 98.7 114 16 109/60 99 10/27/16 20:00 99.5 119 18 143/89 95 10/27/16 16:00 97.4 120 16 107/67 96 10/27/16 13:25 98.0 103 20 123/73 95 Nasal Cannula 2 10/27/16 13:15 103 20 123/73 95 Nasal Cannula 2 10/27/16 13:00 97 20 122/67 92 Nasal Cannula 2 10/27/16 12:45 110 20 126/69 97 Nasal Cannula 2 10/27/16 12:30 98.0 108 20 109/62 93 Nasal Cannula 2 Labs: Laboratory Tests Test 10/28/16 05:36 White Blood Count 9.2 TH/MM3 (4.0-11.0) Red Blood Count 3.98 MIL/MM3 (4.00-5.30) Hemoglobin 12.1 GM/DL (11.6-15.3) Hematocrit 35.5 % (35.0-46.0) Mean Corpuscular Volume 89.0 FL (80.0-100.0) Mean Corpuscular Hemoglobin 30.4 PG (27.0-34.0) Mean Corpuscular Hemoglobin 34.2 % Concent (32.0-36.0) Red Cell Distribution Width 13.8 % (11.6-17.2) Platelet Count 267 TH/MM3 (150-450) Mean Platelet Volume 8.9 FL (7.0-11.0) Neutrophils (%) (Auto) 71.1 % (16.0-70.0) Lymphocytes (%) (Auto) 17.9 % (9.0-44.0) Monocytes (%) (Auto) 10.2 % (0.0-8.0) Eosinophils (%) (Auto) 0.7 % (0.0-4.0) Basophils (%) (Auto) 0.1 % (0.0-2.0) Neutrophils # (Auto) 6.5 TH/MM3 (1.8-7.7) Lymphocytes # (Auto) 1.6 TH/MM3 (1.0-4.8) Monocytes # (Auto) 0.9 TH/MM3 (0-0.9) Eosinophils # (Auto) 0.1 TH/MM3 (0-0.4) Basophils # (Auto) 0.0 TH/MM3 (0-0.2) CBC Comment DIFF FINAL Differential Comment Sodium Level 140 MEQ/L (136-145) Potassium Level 3.5 MEQ/L (3.5-5.1) Chloride Level 105 MEQ/L (98-107) Carbon Dioxide Level 27.9 MEQ/L (21.0-32.0) Anion Gap 7 MEQ/L (5-15) Blood Urea Nitrogen 5 MG/DL (7-18) Creatinine 0.64 MG/DL (0.50-1.00) Estimat Glomerular Filtration 97 ML/MIN (>89) Rate Random Glucose 112 MG/DL (74-106) Calcium Level 8.6 MG/DL (8.5-10.1) Total Bilirubin 0.7 MG/DL (0.2-1.0) Aspartate Amino Transf 35 U/L (15-37) (AST/SGOT) Alanine Aminotransferase 55 U/L (10-53) (ALT/SGPT) Alkaline Phosphatase 116 U/L (45-117) Total Protein 6.3 GM/DL (6.4-8.2) Albumin 2.4 GM/DL (3.4-5.0) Result Diagram: 10/28/16 0536 10/28/16 0536 Grover Batista MD Oct 28, 2016 10:30
[2016-10-28] MEDS: SODIUM CHLOR 0.9% 1000 ML INJ 1,000 ML IV SCH (10:36)
[2016-10-28] MEDS: SODIUM CHLORIDE 0.9% FLUSH 10 ML FLUSH IV FLUSH SCH (10:54)
[2016-10-28] MEDS: DOCUSATE SODIUM 50 MG/SENNA 8.6 MG TAB PO SCH (10:54)
[2016-10-28 12:00] VITALS: BP 105/53; PULSE 102; RESP 16; TEMP 97.7; O2SAT 97
[2016-10-28 12:37] VITALS: RESP 18
--- NOTE | 2016-10-28 13:07 | HHI.DCPOC ---
Discharge Care Plan Diagnosis: (1) Intractable abdominal pain (2) Cholecystitis, acute (3) Gall stone Goals to Promote Your Health * To prevent worsening of your condition and complications * To maintain your health at the optimal level Directions to Meet Your Goals Take your medications as prescribed Follow your dietary instruction Follow activity as directed Keep your appointments as scheduled Take your immunizations and boosters as scheduled If your symptoms worsen call your PCP, if no PCP go to Urgent Care Center or Emergency Room Smoking is Dangerous to Your Health. Avoid second hand smoke Call the 24-hour hour crisis hotline for domestic abuse at Ron Bobby DO Oct 28, 2016 13:07
[2016-10-28] MEDS ORDERED: LEVA750T9 PO (13:14)
--- NOTE | 2016-10-28 13:18 | HHI.DS ---
Discharge Summary Admission Date Oct 25, 2016 at 02:23 Discharge Date: Oct 28, 2016 Admitting Diagnosis Intractable abdominal pain possible acute cholecystitis (1) Intractable abdominal pain ICD Code: R10.9 (2) Cholecystitis, acute ICD Code: K81.0 Diagnosis: Principal (3) Gall stone ICD Code: K80.20 Procedures Cholecystectomy 10/27/16 Brief History - From Admission This 51-year-old female patient with past medical history which includes hypertension. Patient reports that she began to have abdominal pain yesterday. Patient reports abdominal pain which started yesterday while at work. Patient reports the pain is is located primarily in the right upper quadrant with radiation to the back. Patient describes the pain as a dull constant aching sensation 8 out of 10 at its worst, now 2/10. Pain has improved after IV Dilaudid. Patient is not sure what exacerbates the pain, does not seem to be related to activity or certain foods. Patient reports she has not had pain like this in the past. Patient does have associated nausea but no vomiting. Patient denies chest pain, shortness of breath, diarrhea, constipation, black tarry stools, bright red blood per rectum, fevers, chills, recent changes in diet or recent travel. CBC/BMP: 10/28/16 0536 10/28/16 0536 Significant Findings Laboratory Tests Test 10/26/16 10/26/16 10/28/16 06:10 06:15 05:36 Estimat Glomerular Filtration 83 ML/MIN (>89) Rate Albumin 2.9 GM/DL 2.4 GM/DL (3.4-5.0) (3.4-5.0) White Blood Count 11.3 TH/MM3 (4.0-11.0) Neutrophils (%) (Auto) 70.1 % 71.1 % (16.0-70.0) (16.0-70.0) Monocytes (%) (Auto) 10.8 % 10.2 % (0.0-8.0) (0.0-8.0) Neutrophils # (Auto) 7.9 TH/MM3 (1.8-7.7) Monocytes # (Auto) 1.2 TH/MM3 (0-0.9) Red Blood Count 3.98 MIL/MM3 (4.00-5.30) Blood Urea Nitrogen 5 MG/DL (7-18) Random Glucose 112 MG/DL (74-106) Alanine Aminotransferase 55 U/L (10-53) (ALT/SGPT) Total Protein 6.3 GM/DL (6.4-8.2) Imaging Last Impressions Abdomen X-Ray 10/28/16 0000 Signed Impressions: Service Date/Time: Friday, October 28, 2016 10:03 - CONCLUSION: Minimally distended transverse colon without definite evidence for obstruction. A mild ileus can have this appearance. Flroencio Gonzalez MD Gall Bladder Ultrasound 10/25/16 0710 Signed Impressions: Service Date/Time: Tuesday, October 25, 2016 07:56 - CONCLUSION: 1. Multiple gallstones in the gallbladder without biliary tract obstruction. 2. There is diffuse thickening of the gallbladder wall with fluid around the gallbladder and a positive Mo's sign suspicious for acute cholecystitis. Fabrice Dickerson MD PE at Discharge GENERAL: Well-nourished, well-developed patient in NAD. SKIN: Warm and dry. No rash. HEENT: Normocephalic. Atraumatic.Pupils equal and round. Mucous membranes pink and moist. NECK: Supple. Trachea midline. CARDIOVASCULAR: Regular rate and rhythm. S1, S2 noted. No murmur appreciated. RESPIRATORY: No accessory muscle use. Clear to auscultation. Breath sounds equal bilaterally. GASTROINTESTINAL: Abdomen soft, nondistended, tenderness to light and deep palpation at epigastric and RUQ. GENIE drain in place. Decreased bowel sounds. MUSCULOSKELETAL: No obvious deformities. Extremities without clubbing, cyanosis , or edema. NEUROLOGICAL: Awake and alert. No obvious cranial nerve deficits. Motor grossly within normal limits. Normal speech. PSYCHIATRIC: Slightly flattened affect. Hospital Course Acute Cholecystitis With intractable abdominal pain. Positive Mo sign on exam. Gallbladder U/S showed multiple gallstones in the GB without biliary tract obstruction; with diffuse thickening of GB wall with fluid around the GB and +Mo's sign suspicious for acute cholecystitis. Surgery was consulted. She was started on IV Zosyn. She received pain meds, antiemetics and fluids. Status post cholecystectomy 10/27/16. Her diet was advanced. Her drain was removed. Cultures growing gram negative rods. She will be discharged on Levaquin and will follow up with general surgery as an outpt. The pt has not been passing much gas. She had decreased bowel sounds on exam. KUB without evidence of ileus. The pt was tolerating a diet. She will follow up with surgery as an outpt. Pt Condition on Discharge: Good Discharge Disposition: Discharge Home Discharge Time: > 30 minutes Discharge Instructions DIET: Follow Instructions for: Heart Healthy Diet Activities you can perform: Regular-No Restrictions Other Activity Instructions: Do not lift over 30 pounds 6 weeks Follow up Referrals: PCP Follow-up - 1 Week Surgical - [address] Jey Gutierrez Medications: Levofloxacin (Levaquin) 750 Mg Tablet 750 MG PO DAILY Infection #5 TAB Oxycodone (Oxycodone) 5 Mg Cap 5 MG PO Q6H PRN PAIN #30 Ref 0 CAP Continued Medications: Amlodipine (Norvasc) 5 Mg Tab 5 MG PO DAILY Blood Pressure Management #30 Ref 0 TAB Metoprolol Tartrate (Metoprolol Tartrate) 50 Mg Tab 50 MG PO DAILY #30 Ref 0 TAB Ron Bobby DO Oct 28, 2016 13:18 Ron Bobby DO Oct 28, 2016 13:18
--- NOTE | 2016-10-29 22:25 | MP ---
cc: KENNETH AYALA MD DATE OF SURGERY 10/27/2016 PREOPERATIVE DIAGNOSIS Acute calculous cholecystitis. POSTOPERATIVE DIAGNOSIS Acute calculous cholecystitis with hydrops of the gallbladder. OPERATIVE PROCEDURE Laparoscopic cholecystectomy. SURGEON MD Lester ANESTHESIA General. ESTIMATED BLOOD LOSS 50 cc. PROCEDURE IN DETAIL The patient prepped and draped usual fashion. Supraumbilical vertical incision made, deepened down, fascia grasped and opened under direct vision. Johan cannula is placed and balloon insufflated. The abdomen was insufflated with CO2 and the patient positioned in reverse Trendelenburg with a tilt 0 degrees. End of camera is inserted and remaining ports were placed subxiphoid and two right upper quadrant ports. Abdomen is explored in quadrants. Omentum appears to be inflamed. Liver is fairly inflamed, reddish and then gallbladder is visualized. The gallbladder is huge, dilated with omentum stuck to it, this is peeled off and then the gallbladder is decompressed with a trocar, needle and syringe, about 120 cc of nonbilious material was obtained which is clear indicating hydrops of the gallbladder and distal outlet obstruction with resorption of the previous bile. The gallbladder is now grasped with Jg [employer] Graspers, elevated, cystic duct and cystic artery carefully dissected with a [place] dissector. This is inflamed area and this took a bit. Once the anatomy is clear the gallbladder is elevated from its plate on the liver bed to allow for ___ of the structures. Cystic duct and cystic artery are clipped, triple ligated, Ligaclips divided. Gallbladder is taken off, the liver bed with L hook, cautery instrument and then delivered through the subumbilical incision using EndoCatch bag. The area irrigated with copious amounts of saline, meticulous hemostasis assured, in the face of inflammation and difficulty dissecting, a 10 flat GENIE is placed in subhepatic space. Area irrigated once more with saline, then all the instruments were withdrawn. The abdomen is closed with #1 Vicryl for umbilical incision and 4-0 Monocryl for the skin. Dermabond applied. The patient tolerated the procedure well. Kenneth SHERIDAN/KATARINA /4:04 PM /10:14 PM
== END 2016-10-28 14:38 | disposition home or self-care (01) | DRG 418 ==
LOC: NEDDLT 23:59 → NEPGCP 10-25 02:23 → OBSVTOIN 10-25 02:23 → HOCB 10-25 13:56 → N07B 10-27 12:56 → N07A 10-27 13:45
PROVIDERS: ADMIT Hospitalist; ATTEND Hospitalist
PROC: 0FT44ZZ Resection of Gallbladder, Percutaneous Endoscopic Approach (ICD-10-PCS; principal; 2016-10-27 10:30)
DX: K80.12 Calculus of gallbladder with acute and chronic cholecystitis without obstruction (principal); K82.1 Hydrops of gallbladder; I10 Essential (primary) hypertension; Z23 Encounter for immunization
CPT/HCPCS: 74000; 76705; 76937; 80053; 81001; 83690; 85025; 87015; 87070; 87077; 87102; 87116; 87186; 87205; 87206; 88304; 90732; 93005; 96361; 96365; 96375; 96376; 99281; C9113; J1100; J1170; J2250; J2270; J2405; J2543; J2710; J3010; J3475; J7030; J7120